=== PATIENT | female | born 1935 | race Caucasian/White ===

== ENCOUNTER → 2016-06-03 | Outpatient (CLI) | payer MEDICARE, OTHER | LOC: WI 10:45 | PROVIDERS: ATTEND Internal Medicine Nephrology | DX: Z12.31 Encounter for screening mammogram for malignant neoplasm of breast (principal) | CPT/HCPCS: 77067; G0202 ==

== ENCOUNTER → 2017-06-04 | Outpatient (CLI) | payer MEDICARE, OTHER ==
--- NOTE | 2017-06-05 09:25 | WOMENS IMAGING REPORT ---
EXAM DESCRIPTION: BILAT SCREENING MAMMO W/CAD COMPLETED DATE/TIME: 06/04/2017 10:20 am REASON FOR STUDY: ROUTINE SCREENING; Z12.31 Z12.31 ENCNTR SCREEN MAMMOGRAM FOR MALIGNANT NEOPLASM O F ALYCE COMPARISON: 2009 to 2016 TECHNIQUE: Standard craniocaudal and mediolateral oblique views of each breast recorded using [employer] l acquisition. LIMITATIONS: None. FINDINGS: RIGHT BREAST MASSES: No suspicious masses. CALCIFICATIONS: No new or suspicious calcifications. ARCHITECTURAL DISTORTION: None. DEVELOPING DENSITY: None. ASYMMETRY: None noted. OTHER: No other significant findings. LEFT BREAST MASSES: No suspicious masses. CALCIFICATIONS: No new or suspicious calcifications. ARCHITECTURAL DISTORTION: Small area of architecture distortion 11 o'clock 5.3 cm from the nipple DEVELOPING DENSITY: None. ASYMMETRY: None noted. OTHER: No other significant findings. Read with the assistance of CAD. .[facility] - R2 Cenova Version 1.3 .[facility] - R2 Cenova Version 1.3 .[facility] - R2 Cenova Version 2.4 .[facility] [place] R2 Cenova Version 2.4 .[facility] - R2 Component Engineer Version 9.2 IMPRESSION: Architecture distortion left breast BREAST DENSITY: c. The breasts are heterogeneously dense, which may obscure small masses. BIRAD: 0 Incomplete: Needs Additional Imaging Evaluation and/or prior Mammograms for Comparison. RECOMMENDATION: RECOMMENDED FOLLOW-UP: Magnification spot compression with ultrasound if indicated. The patient will be contacted for additional imaging. COMMENT: The patient has been notified of the results by letter per SA requirements. Additional no tification policies are in place for contacting patient with suspicious or incomplete findings. Quality ID #[id number]: The [employer] recommends an annual screening mammogram for women aged 40 years or over. This facility utilizes a reminder system to ensure that all patients receive reminder letters, and/or direct phone calls for appointments. This includes reminders for routine scr eening mammograms, diagnostic mammograms, or other Breast Imaging Interventions when appropriate. Th is patient will be placed in the appropriate reminder system. The [employer] (ACR) has developed recommendations for screening MRI of the breast s in certain patient populations, to be used in conjunction with mammography. Breast MRI surveillanc e may be appropriate for women with more than 20% lifetime risk of developing breast cancer as deter mined by genetic testing, significant family history of the disease, or history of mantle radiation f or Hodgkins Disease. ACR Practice Guidelines 2008. TECHNICAL DOCUMENTATION: FINDING NUMBER: (1) ASSESSMENT: (1) JOB ID: [id number] [employer] [facility] [employer]- All Rights Reserved
== END ==
LOC: WI 09:55
PROVIDERS: ATTEND Internal Medicine Nephrology
DX: Z12.31 Encounter for screening mammogram for malignant neoplasm of breast (principal)
CPT/HCPCS: 77067

== ENCOUNTER → 2017-06-24 | Outpatient (CLI) | payer MEDICARE, OTHER ==
--- NOTE | 2017-06-24 11:39 | WOMENS IMAGING REPORT ---
EXAM DESCRIPTION: LEFT DIAGNOSTIC MAMMO W/CAD; U/S BREAST UNILAT LIMITED COMPLETED DATE/TIME: 06/24/2017 8:59 am; 06/24/2017 10:07 am REASON FOR STUDY: UNSPECIFIED LUMP; N63.22; LT BREAST N63.22 N63.22 UNSPECIFIED LUMP IN THE LEFT BR EAST, UPPER INNER QUAD COMPARISON: 06/04/2017 and 06/03/2016. TECHNIQUE: True lateral and spot compression MLO and CC images acquired. LIMITATIONS: None. FINDINGS: BREAST: left MASSES: No suspicious masses. CALCIFICATIONS: No new or suspicious calcifications. ARCHITECTURAL DISTORTION: With additional imaging the small area of architectural distortion is no lo nger present. There is fibroglandular tissue with no underlying mass or architectural distortion. DEVELOPING DENSITY: None. ASYMMETRY: None noted. OTHER: No other significant findings. BREAST ULTRASOUND: TECHNIQUE: Static and dynamic grayscale images acquired of the left breast in the specific areas of c linical/mammographic concern. Selected color Doppler images recorded. ELASTOGRAPHY PERFORMED: No. LIMITATIONS: None. FINDINGS: MASS: No mass identified. Normal glandular tissue. ELASTOGRAPHY CHARACTERISTICS: Not applicable. OTHER: No other significant finding. IMPRESSION: Area of architectural distortion not present on additional imaging. No worrisome mammog raphic or sonographic findings. BREAST DENSITY: c. The breasts are heterogeneously dense, which may obscure small masses. BIRAD: 2 Benign findings. RECOMMENDATION: RECOMMENDED FOLLOW UP: Birads 1 or 2: The patient should resume routine screening . SPECIFIC INTERVENTION/IMAGING/CONSULTATION RECOMMENDED:No additional intervention/ imaging/consultati on needed at this time. COMMUNICATION:The imaging findings were not discussed with the patient. Her referring provider has be en notified of the findings. COMMENT: The patient has been notified of the results by letter per SA requirements. Additional no tification policies are in place for contacting patient with suspicious or incomplete findings. Quality ID #[id number]: The [employer] recommends an annual screening mammogram for women aged 40 years or over. This facility utilizes a reminder system to ensure that all patients receive reminder letters, and/or direct phone calls for appointments. This includes reminders for routine scr eening mammograms, diagnostic mammograms, or other Breast Imaging Interventions when appropriate. Th is patient will be placed in the appropriate reminder system. The [employer] (ACR) has developed recommendations for screening MRI of the breast s in certain patient populations, to be used in conjunction with mammography. Breast MRI surveillanc e may be appropriate for women with more than 20% lifetime risk of developing breast cancer as deter mined by genetic testing, significant family history of the disease, or history of mantle radiation f or Hodgkins Disease. ACR Practice Guidelines 2008. TECHNICAL DOCUMENTATION: FINDING NUMBER: (1) ASSESSMENT: (1) JOB ID: [id number] [employer]- All Rights Reserved Reading location - IP/workstation name: [email or web address]
--- NOTE | 2017-06-24 11:39 | WOMENS IMAGING REPORT ---
EXAM DESCRIPTION: LEFT DIAGNOSTIC MAMMO W/CAD; U/S BREAST UNILAT LIMITED COMPLETED DATE/TIME: 06/24/2017 8:59 am; 06/24/2017 10:07 am REASON FOR STUDY: UNSPECIFIED LUMP; N63.22; LT BREAST N63.22 N63.22 UNSPECIFIED LUMP IN THE LEFT BR EAST, UPPER INNER QUAD COMPARISON: 06/04/2017 and 06/03/2016. TECHNIQUE: True lateral and spot compression MLO and CC images acquired. LIMITATIONS: None. FINDINGS: BREAST: left MASSES: No suspicious masses. CALCIFICATIONS: No new or suspicious calcifications. ARCHITECTURAL DISTORTION: With additional imaging the small area of architectural distortion is no lo nger present. There is fibroglandular tissue with no underlying mass or architectural distortion. DEVELOPING DENSITY: None. ASYMMETRY: None noted. OTHER: No other significant findings. BREAST ULTRASOUND: TECHNIQUE: Static and dynamic grayscale images acquired of the left breast in the specific areas of c linical/mammographic concern. Selected color Doppler images recorded. ELASTOGRAPHY PERFORMED: No. LIMITATIONS: None. FINDINGS: MASS: No mass identified. Normal glandular tissue. ELASTOGRAPHY CHARACTERISTICS: Not applicable. OTHER: No other significant finding. IMPRESSION: Area of architectural distortion not present on additional imaging. No worrisome mammog raphic or sonographic findings. BREAST DENSITY: c. The breasts are heterogeneously dense, which may obscure small masses. BIRAD: 2 Benign findings. RECOMMENDATION: RECOMMENDED FOLLOW UP: Birads 1 or 2: The patient should resume routine screening . SPECIFIC INTERVENTION/IMAGING/CONSULTATION RECOMMENDED:No additional intervention/ imaging/consultati on needed at this time. COMMUNICATION:The imaging findings were not discussed with the patient. Her referring provider has be en notified of the findings. COMMENT: The patient has been notified of the results by letter per SA requirements. Additional no tification policies are in place for contacting patient with suspicious or incomplete findings. Quality ID #[id number]: The [employer] recommends an annual screening mammogram for women aged 40 years or over. This facility utilizes a reminder system to ensure that all patients receive reminder letters, and/or direct phone calls for appointments. This includes reminders for routine scr eening mammograms, diagnostic mammograms, or other Breast Imaging Interventions when appropriate. Th is patient will be placed in the appropriate reminder system. The [employer] (ACR) has developed recommendations for screening MRI of the breast s in certain patient populations, to be used in conjunction with mammography. Breast MRI surveillanc e may be appropriate for women with more than 20% lifetime risk of developing breast cancer as deter mined by genetic testing, significant family history of the disease, or history of mantle radiation f or Hodgkins Disease. ACR Practice Guidelines 2008. TECHNICAL DOCUMENTATION: FINDING NUMBER: (1) ASSESSMENT: (1) JOB ID: [id number] [employer]- All Rights Reserved Reading location - IP/workstation name: [email or web address]
== END ==
LOC: WI 08:35
PROVIDERS: ATTEND Internal Medicine Nephrology
DX: N63.22 Unspecified lump in the left breast, upper inner quadrant (principal)
CPT/HCPCS: 76642

== ENCOUNTER → 2017-12-18 | Outpatient (CLI) | payer MEDICARE, OTHER ==
--- NOTE | 2017-12-18 20:23 | VASCULAR PRELIM REPORT ---
Provider Note Provider Note: Venous study of the left common femoral and the right lower extremity shows no deep venous thrombosis. 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 Full report is to follow once reading software is repaired.
--- NOTE | 2017-12-18 20:36 | XCELERA REPORT ---
[address] [place] [facility] [address] Lower Extremity Venous Evaluation Procedure: Color flow and duplex imaging of the veins of the right lower extremity as well as the left Common Femoral vein. Right Sided Venous Evaluation A large. lucent, non vascular mass, 2.17 cms in thickness, is seen in the Popliteal fossa. Normal vessel filling wall to wall, compression and augmentation as well as Colour flow down to the infrageniculate veins. Left Sided Venous Evaluation The left common femoral vein is fully compressible. Spontaneous and phasic flow is present in the left common femoral vein. Interpretation Summary No duplex evidence of DVT or obstruction in the right lower extremity nor in the left Common Femoral vein. A large Popliteal cyst is noted in the right Popliteal fossa. Name: OBED PEARSON Age: 82 yrs Gender: Female : 1935 Patient Status: Outpatient Patient Location: Study Date: 12/18/2017 02:13 PM Reason For Study: SWELLING Ordering Physician: NELA SOSA PA-C Performed By: Ruth Holder : NELA SOSA PA-C > Matthias Adler
== END ==
LOC: SP 13:56
PROVIDERS: ATTEND Physician Assistant
DX: R22.41 Localized swelling, mass and lump, right lower limb (principal); M25.469 Effusion, unspecified knee
CPT/HCPCS: 93971

== ENCOUNTER → 2018-06-16 | Outpatient (CLI) | payer MEDICARE, OTHER ==
--- NOTE | 2018-06-16 15:33 | WOMENS IMAGING REPORT ---
EXAM DESCRIPTION: BILAT SCREENING MAMMO W/CAD COMPLETED DATE/TIME: 06/16/2018 1:32 pm REASON FOR STUDY: Z12.31 ENCOUNTER FOR SCREENING MAMMOGRAM FOR MALIGNANT NEOPLASM OF BREAST Z12.31 ENCNTR SCREEN MAMMOGRAM FOR MALIGNANT NEOPLASM OF ALYCE COMPARISON: Multiple since 2008 TECHNIQUE: Standard craniocaudal and mediolateral oblique views of each breast recorded using digita l acquisition. LIMITATIONS: None. FINDINGS: Findings present which are benign by mammographic criteria. No suspicious masses, calcifi cations or architectural distortion. Pertinent benign findings: Benign bilateral breast parenchymal calcifications Read with the assistance of CAD. .[facility] - R2 Cenova Version 1.3 .[facility] Imaging - R2 Cenova Version 2.1 .[facility] - R2 Cenova Version 2.4 .[facility] [place] - R2 Cenova Version 2.4 .[facility] - R2 Spinner Continuous Version 9.2 Benign mammographic findings may include one or more of the following: Smooth masses, popcorn/rim/co arse calcifications, asymmetries, post-procedure changes, and lesions with long-standing stability. IMPRESSION: BENIGN MAMMOGRAPHIC FINDINGS. BIRADS 2 BREAST DENSITY: d. The breasts are extremely dense, which lowers the sensitivity of mammography. BIRAD: 2 BENIGN FINDING(S) RECOMMENDATION: ROUTINE SCREENING COMMENT: The patient has been notified of the results by letter per SA requirements. Additional no tification policies are in place for contacting patient with suspicious or incomplete findings. Quality ID #[id number]: The [employer] recommends an annual screening mammogram for women aged 40 years or over. This facility utilizes a reminder system to ensure that all patients receive reminder letters, and/or direct phone calls for appointments. This includes reminders for routine scr eening mammograms, diagnostic mammograms, or other Breast Imaging Interventions when appropriate. Th is patient will be placed in the appropriate reminder system. The [employer] (ACR) has developed recommendations for screening MRI of the breast s in certain patient populations, to be used in conjunction with mammography. Breast MRI surveillanc e may be appropriate for women with more than 20% lifetime risk of developing breast cancer as deter mined by genetic testing, significant family history of the disease, or history of mantle radiation f or Hodgkins Disease. ACR Practice Guidelines 2008. TECHNICAL DOCUMENTATION: FINDING NUMBER: (1) ASSESSMENT: (1) JOB ID: [id number] [employer]- All Rights Reserved Reading location - IP/workstation name: [email or web address]
== END ==
LOC: WI 12:56
PROVIDERS: ATTEND Internal Medicine Nephrology
DX: Z12.31 Encounter for screening mammogram for malignant neoplasm of breast (principal)
CPT/HCPCS: 77067

== ENCOUNTER → 2019-06-18 | Outpatient (CLI) | payer MEDICARE, OTHER ==
--- NOTE | 2019-06-18 14:04 | WOMENS IMAGING REPORT ---
EXAM DESCRIPTION: BILAT SCREENING MAMMO W/CAD COMPLETED DATE/TIME: 06/18/2019 11:02 am REASON FOR STUDY: Z12.31 SCREENING MAMMO Z12.31 ENCNTR SCREEN MAMMOGRAM FOR MALIGNANT NEOPLASM OF B RE COMPARISON: 2017 to 2018 EXAM PARAMETERS: Standard craniocaudal and mediolateral oblique views of each breast recorded using digital acquisition. Read with the assistance of CAD. .[facility] - [employer] Instructor Version 9.2 LIMITATIONS: None. FINDINGS: No suspicious masses, suspicious calcifications or architectural distortion. No areas of c oncern. IMPRESSION: Negative MAMMOGRAM. BIRADS 1 BREAST DENSITY: c. The breasts are heterogeneously dense, which may obscure small masses. BIRAD: ASSESSMENT: 1 NEGATIVE RECOMMENDATION: ROUTINE SCREENING COMMENT: The patient has been notified of the results by letter per MQSA requirements. Additional no tification policies are in place for contacting patient with suspicious or incomplete findings. Quality ID #[id number]: The [employer] recommends an annual screening mammogram for women aged 40 years or over. This facility utilizes a reminder system to ensure that all patients receive reminder letters, and/or direct phone calls for appointments. This includes reminders for routine scr eening mammograms, diagnostic mammograms, or other Breast Imaging Interventions when appropriate. Th is patient will be placed in the appropriate reminder system. TECHNICAL DOCUMENTATION: FINDING NUMBER: (1) ASSESSMENT: (1) JOB ID: [id number] [employer]- All Rights Reserved Reading location - IP/workstation name: [email or web address]
== END ==
LOC: WI 10:00
PROVIDERS: ATTEND Internal Medicine Nephrology
DX: Z12.31 Encounter for screening mammogram for malignant neoplasm of breast (principal)
CPT/HCPCS: 77067